=== PATIENT | female | born 1990 | race Caucasian/White ===

== ENCOUNTER 2020-06-07 10:52 | Observation (INO) | payer MEDICAID ==
[2020-06-07 11:27] LABS: Absolute Neutrophil Ct (ANC) 12.28 (1.4-6.9); BASOPHIL % 0.2 % (0.0-0.4); Basophil (Absolute #) 0.03 (0-0.4); Eosinophil % 0.6 % (0.00-5.0); Eosinophil (Absolute #) 0.09 (0-0.5); Hematocrit 35.1 % (35-47); Hemoglobin 10.9 gm/dl (12.0-16.0); Lymphocyte (Absolute #) 2.35 (1.0-4.6); Lymphocytes % 15.1 % (24.0-44.0); Mean Cell Volume 89.1 fl (78-100); Mean Corpuscular Hemoglobin 27.7 pg (26-32); Mean Corpuscular Hgb Concent. 31.1 g/dl (32-36); Mean Platelet Volume 10.8 fl (7.5-11.0); Monocytes % 5.1 % (0.0-12.0); Platelet Count 344 K/mm3 (150-450); Red Blood Count 3.94 M/mm3 (4.1-5.4); Red Cell Distribution Width 15.3 % (11.5-14.0); White Blood Count 15.6 K/mm3 (4.0-10.5)
[2020-06-07 11:30] VITALS: BP 118/57; PULSE 90
[2020-06-07 11:39] LABS: ALBUMIN 3.5 g/dL (3.5-5.0); ALKALINE PHOSPHATASE 90 U/L (38-126); BILIRUBIN,TOTAL < 0.10 mg/dL (0.2-1.3); BLOOD UREA NITROGEN 9 mg/dL (7-17); CHLORIDE 101 mmol/L (98-107); Calcium 9.2 mg/dL (8.4-10.2); Carbon Dioxide 25 mmol/L (22-30); Creatinine 1 0.69 mg/dL (0.52-1.04); EST GLOMERULAR FILTRATION RATE > 60.0 ML/MIN; Glucose 93 mg/dL (74-106); Potassium 4.6 mmol/L (3.5-5.1); SGOT/AST 14 U/L (14-36); SGPT/ALT 10 U/L (0-35); SODIUM 134 mmol/L (137-145); Total Protein 6.5 g/dL (6.3-8.2)
[2020-06-07 12:18] LABS: Appearance SLIGHTLY CLOUDY (CLEAR); Bacteria RARE /HPF (NEGATIVE); Bilirubin NEGATIVE (NEGATIVE); Blood NEGATIVE Ery/ul (0-5); Epithelial Cells RARE /HPF (FEW); Glucose NEGATIVE (NEGATIVE); Ketones NEGATIVE (NEGATIVE); Leukocyte Esterase TRACE (NEGATIVE); Mucus SLIGHT /HPF (NEGATIVE); Nitrite NEGATIVE (NEGATIVE); Protein,Urine Dip NEGATIVE (Negative); Specific Gravity 1.026 (1.005-1.025); Urobilinogen NEGATIVE mg/dL (0-1)
[2020-06-07 12:47] LABS: Amphetamine,Urine NEGATIVE (NEGATIVE); Barbiturate,Urine NEGATIVE (NEGATIVE); Benzodiazepine,Urine NEGATIVE (NEGATIVE); Cocaine,Urine NEGATIVE (NEGATIVE); Methadone,Urine NEGATIVE (NEGATIVE); Opiate,Urine NEGATIVE (NEGATIVE); PCP,Urine NEGATIVE (NEGATIVE); THC,Urine NEGATIVE (NEGATIVE)
== END 2020-06-07 13:25 | disposition home or self-care (01) ==
LOC: MED SURG 10:52
PROVIDERS: ADMIT Obstetrics & Gynecology; ATTEND Obstetrics & Gynecology
DX: Z34.03 Encounter for supervision of normal first pregnancy, third trimester (principal); Z3A.30 30 weeks gestation of pregnancy; R11.0 Nausea; R19.7 Diarrhea, unspecified; R10.2 Pelvic and perineal pain
CPT/HCPCS: 36415; 80053; 80307; 81001; 85025; 87086; G0378

== ENCOUNTER 2020-06-14 09:33 | Observation (INO) | payer MEDICAID ==
[2020-06-14 09:56] VITALS: BP 130/63; PULSE 100
--- NOTE | 2020-06-14 11:06 | XRAY ---
Indication: growth. Two-dimensional OB ultrasound performed. Comparison: April 10, 2020. There is again a single viable intrauterine in cephalic presentation. heart rate 147 BPM. anatomy previously documented. Posterior placenta without abruption/previa. Cervical length is 4.1 cm. BPD measures 8.37 cm corresponding to 33 weeks 5 days. HC measures 29.24 cm corresponding to 32 weeks 2 days. AC measures 29.26 cm corresponding to 33 weeks 2 days. FL measures 5.96 cm corresponding to 31 weeks 0 days. MATEUS is 9.7 cm. Impression: Again single viable intrauterine with mean gestational age 32 weeks 4 days. Normal progression of . No new/acute findings.
== END 2020-06-14 10:20 | disposition home or self-care (01) ==
LOC: OB 09:33
PROVIDERS: ADMIT Obstetrics & Gynecology; ATTEND Obstetrics & Gynecology
DX: Z34.83 Encounter for supervision of other normal pregnancy, third trimester (principal)
CPT/HCPCS: 59025; 76816; G0378

== ENCOUNTER 2020-06-25 10:12 | Observation (INO) | payer MEDICAID ==
[2020-06-25 10:33] VITALS: BP 136/60; PULSE 100
== END 2020-06-25 11:05 | disposition home or self-care (01) ==
LOC: OB 10:12
PROVIDERS: ADMIT Obstetrics & Gynecology; ATTEND Obstetrics & Gynecology
DX: Z34.03 Encounter for supervision of normal first pregnancy, third trimester (principal); Z3A.33 33 weeks gestation of pregnancy
CPT/HCPCS: 59025; G0378

== ENCOUNTER 2023-12-27 15:33 | Emergency (ER) | payer MEDICAID, OTHER ==
[2023-12-27 15:48] VITALS: PULSE 87; TEMP 98.7
[2023-12-27] MEDS ORDERED: TORAdol 30 mg Injection ONE (16:31)
[2023-12-27] MEDS ORDERED: Norflex 60 MG/2 ML ONE (16:31)
[2023-12-27] MEDS: TORAdol 30 mg Injection IM ONE (16:32)
[2023-12-27] MEDS: Norflex 60 MG/2 ML IM ONE (16:32)
[2023-12-27 16:37] VITALS: BP 129/72; O2SAT 98
--- NOTE | 2023-12-27 16:53 | ERPHSYRPT ---
- History of Present Illness Time Seen by Provider: 12/27/23 15:36 Source: patient Exam Limitations: no limitations Patient Subjective Stated Complaint: pt c/o of right sided low back pain that radiates around her hip Triage Nursing Assessment: Pt was brought to the ER by her mother in law, hypertensive, rates pain as 8/10, has nausea but denies vomiting, painful when ambulating, states that it gets better later in the day, pain began a week ago and has gotten steadly worse, denies injury, pulses normal, skin n/w/d, doesn't appear to be in any distress Physician History: 33-year-old morbidly obese female presented to the ER with complaints of right lower back pain for 1 week. Patient reports some radiation to right hip area, aggravated with activity and better with resting. Patient reports 8/10 intensity sharp pain with no numbness tingling or focal weakness of lower extremities/no saddle anesthesia. No loss of bowel or bladder control. Denies fall or trauma, pulling or pushing heavy objects. Patient reports nausea because of worsening pain but no vomiting. Denies any urinary complaints. Allergies/Adverse Reactions: amoxicillin Allergy (Verified 12/27/23 15:48) Hives THROAT SWELLS Penicillins Allergy (Verified 12/27/23 15:48) Hives THROAT SWELLS Home Medications: Aspirin 81 mg PO DAILY 06/07/20 [History] Vits W-Ca,Fe,FA(<1Mg) [] 1 tab PO DAILY 06/07/20 [History] Letrozole [Femara] 2.5 mg PO DAILY 12/27/23 [History] Hx Influenza Vaccination/Date Given: No Hx Pneumococcal Vaccination/Date Given: No Travel Risk - International Travel Have you traveled outside of the country in past 3 weeks: No - Emerging Infectious Disease Are you exhibiting symptoms associated with any current EIDs: No - Review of Systems Constitutional: No Symptoms Ears, Nose, & Throat: No Symptoms Respiratory: No Symptoms Cardiac: No Symptoms Abdominal/Gastrointestinal: Nausea Genitourinary Symptoms: No Symptoms Musculoskeletal: Back Pain Skin: No Symptoms Neurological: No Symptoms Endocrine: No Symptoms Hematologic/Lymphatic: No Symptoms - Past Medical History Pertinent Past Medical History: Yes Female Reproductive Disorders: Other Other Medical History: pcos - Past Surgical History Past Surgical History: Yes Gastrointestinal: Appendectomy Other Surgical History: wisdom teeth - Female History Hx Last Menstrual Period: 12/25/2023 Hx Now: No - Social History Smoking Status: Current every day smoker Exposure to second hand smoke: Yes Drug Use: none - Social Determinants of Health Will the patient participate in the screening: Yes Do you worry about a steady place to live?: No Do you have any problems with any of the following?: No known problems In the past 12 months,have you had to go without utilities?: No Transportation Issues: No Has anyone in your support network made you feel unsafe?: No Have you or anyone in your house had to go without enough: No - Nursing Vital Signs Nursing Vital Signs: Initial Vital Signs Temperature 98.7 F 12/27/23 15:40 Pulse Rate 87 12/27/23 15:40 Blood Pressure 143/78 12/27/23 15:40 O2 Sat by Pulse Oximetry 95 12/27/23 15:40 Pain Scale Pain Intensity [Right Lateral 8 Back] Pain Intensity 8 - Physical Exam General Appearance: no apparent distress, alert Eye Exam: PERRL/EOMI Ears, Nose, Throat Exam: normal ENT inspection Neck Exam: normal inspection, full range of motion Respiratory Exam: normal breath sounds, lungs clear Cardiovascular Exam: regular rate/rhythm, normal heart sounds Gastrointestinal Exam: soft, normal bowel sounds, No tenderness Back Exam: normal inspection, normal range of motion, muscle spasm, point tenderness (Right lower back/sacroiliac area.), No vertebral tenderness Extremity Exam: normal inspection, normal range of motion Neurologic Exam: alert, oriented x 3, cooperative Skin Exam: normal color SpO2 Interpretation: normal SpO2: 98 O2 Delivery: Room Air Ordered Tests: Medication Summary Discontinued Medications Generic Name Dose Route Start Last Admin Trade Name Debbie PRN Reason Stop Dose Admin Ketorolac Tromethamine 30 mg 12/27/23 16:05 12/27/23 16:32 Ketorolac Tromethamine 30 Mg/Ml Inj IM 12/27/23 16:06 30 mg STAT ONE Administration Ketorolac Tromethamine Confirm 12/27/23 16:31 Ketorolac Tromethamine 30 Mg/Ml Inj Administered 12/27/23 16:32 Dose 30 mg .ROUTE .STK-MED ONE Orphenadrine Citrate 60 mg 12/27/23 16:05 12/27/23 16:32 Orphenadrine Citrate 60 Mg/2 Ml Vial IM 12/27/23 16:06 60 mg STAT ONE Administration Orphenadrine Citrate Confirm 12/27/23 16:31 Orphenadrine Citrate 60 Mg/2 Ml Vial Administered 12/27/23 16:32 Dose 60 mg .ROUTE .STK-MED ONE - Progress Progress: improved Progress Note: 12/27/23 17:01 33-year-old is evaluated in the ER for right lower back pain for 1 week with negative neuroexam in lower extremities. No cauda equina symptoms. No midline tenderness. Do not think patient needs imaging. She is given symptomatic treatment with Toradol and Norflex, on reevaluation her pain is remarkably improved. She ambulated to the ER without any assistance. She is being disch arged on oral NSAIDs and muscle relaxant. Discussed signs symptoms of worsening needing return to ER which she seems understanding. Stable for discharge. Counseled pt/family regarding: diagnosis, need for follow-up Medical Desision Making - Risk of complications The pt has a mod risk of morbidity or mortality based on: Need for prescription drug management - Departure Departure Disposition: Home Clinical Impression: Low back strain Condition: Stable Critical Care Time: No Referrals: BÁRBARA MATA NP [Primary Care Provider] - Follow up with PCP 1 day Instructions: Low Back Pain (DC) Additional Instructions: Take Tylenol/ibuprofen as needed. Follow-up with primary care for reevaluation. Return to ER for intractable pain, numbness tingling weakness of lower extremities, loss of bowel or bladder control/saddle anesthesia etc. Prescriptions: Ibuprofen 600 mg PO Q6HPRN PRN 10 Days #20 tablet PRN Reason: Pain Cyclobenzaprine HCl 10 mg [Flexeril 10 MG] 10 mg PO TID #20 tablet
== END 2023-12-27 17:02 | disposition home or self-care (01) ==
LOC: ED 15:33
DX: S39.012A Strain of muscle, fascia and tendon of lower back, initial encounter (principal); Z79.899 Other long term (current) drug therapy; Z72.0 Tobacco use
CPT/HCPCS: 96372; 99283; J1885; J2360